=== PATIENT | female | born 1965 | race Asian ===

== ENCOUNTER 2016-12-07 12:17 | Emergency (ER) | payer OTHER ==
[~2016-12-07] VITALS: Ht 162.6 cm; Wt 73.0 kg
[2016-12-07] MEDS ORDERED: LOSA50TA37 PO (12:25)
[2016-12-07] MEDS ORDERED: METF500T4 PO (12:25)
[2016-12-07] MEDS ORDERED: SIMV-260 PO (12:25)
[2016-12-07] MEDS ORDERED: ASPI-1182 PO (12:25)
[2016-12-07] MEDS ORDERED: AMLO-511 PO (12:25)
[2016-12-07] MEDS ORDERED: HYDR25TA PO (12:25)
[2016-12-07 12:28] LABS: GLUCOSE,POINT OF CARE 103 MG/DL (70-110)
[2016-12-07] MEDS ORDERED: ACETAMINOPHEN/CODEINE 300-30 MG TABLET PO ONE (13:30)
[2016-12-07 14:26] VITALS: BP 145/99
== END 2016-12-07 14:59 | disposition home or self-care (01) ==
LOC: EMS 12:18
DX: S80.02XA Contusion of left knee, initial encounter (principal); E11.9 Type 2 diabetes mellitus without complications; E78.00 Pure hypercholesterolemia, unspecified; I10 Essential (primary) hypertension; W01.0XXA Fall on same level from slipping, tripping and stumbling without subsequent striking against object, initial encounter; Y93.01 Activity, walking, marching and hiking; Y92.512 Supermarket, store or market as the place of occurrence of the external cause; Y99.8 Other external cause status
CPT/HCPCS: 82962; 99284

== ENCOUNTER 2017-01-08 12:08 | Emergency (ER) | payer OTHER ==
[~2017-01-08] VITALS: Ht 160 cm; Wt 73.6 kg
[~2017-01-08 12:08] MED LIST: AMLO-511 PO; ASPI-1182 PO; HYDR25TA PO; LOSA50TA37 PO; METF500T4 PO; SIMV-260 PO
[2017-01-08 12:22] LABS: GLUCOSE,POINT OF CARE 272 MG/DL (70-110)
[2017-01-08] MEDS ORDERED: POVIDONE-IODINE 10% 15 ML SOLUTION UD TP ONE (12:45)
[2017-01-08] MEDS ORDERED: PERTUSS(ACELL),DIPH,TET VAC/PF 0.5 ML VIAL IM ONE (12:45)
[2017-01-08] MEDS ORDERED: HYDROCODONE/ACETAMINOPHEN 5-325 MG TABLET PO ONE (12:45)
[2017-01-08 13:32] VITALS: BP 129/83
== END 2017-01-08 14:02 | disposition home or self-care (01) ==
LOC: EMS 12:09
DX: S61.012A Laceration without foreign body of left thumb without damage to nail, initial encounter (principal); E11.9 Type 2 diabetes mellitus without complications; I10 Essential (primary) hypertension; E78.00 Pure hypercholesterolemia, unspecified; W26.8XXA Contact with other sharp object(s), not elsewhere classified, initial encounter; Y93.89 Activity, other specified; Y92.89 Other specified places as the place of occurrence of the external cause; Y99.8 Other external cause status
CPT/HCPCS: 82962; 90471; 90715; 99283

== ENCOUNTER 2017-01-10 07:23 | Emergency (ER) | payer OTHER ==
[~2017-01-10] VITALS: Ht 160 cm; Wt 64.0 kg
[2017-01-10 07:42] VITALS: BP 109/82
[2017-01-10 07:44] LABS: GLUCOSE,POINT OF CARE 184 MG/DL (70-110)
== END 2017-01-10 08:25 | disposition home or self-care (01) ==
LOC: EMS 07:27
DX: S61.012D Laceration without foreign body of left thumb without damage to nail, subsequent encounter (principal); E11.9 Type 2 diabetes mellitus without complications; E78.00 Pure hypercholesterolemia, unspecified; I10 Essential (primary) hypertension; X58.XXXD Exposure to other specified factors, subsequent encounter; Z79.82 Long term (current) use of aspirin
CPT/HCPCS: 82962; 99283

== ENCOUNTER 2017-01-12 08:44 | Emergency (ER) | payer OTHER ==
[~2017-01-12] VITALS: Ht 160 cm; Wt 73.6 kg
[2017-01-12 08:57] LABS: GLUCOSE,POINT OF CARE 108 MG/DL (70-110)
[2017-01-12 10:02] VITALS: BP 129/83
== END 2017-01-12 10:33 | disposition home or self-care (01) ==
LOC: EMS 08:46
DX: S61.012D Laceration without foreign body of left thumb without damage to nail, subsequent encounter (principal); E11.9 Type 2 diabetes mellitus without complications; E78.00 Pure hypercholesterolemia, unspecified; X58.XXXD Exposure to other specified factors, subsequent encounter
CPT/HCPCS: 82962; 99282

== ENCOUNTER 2017-07-15 08:15 | Emergency (ER) | payer OTHER ==
[~2017-07-15] VITALS: Ht 160 cm; Wt 72.7 kg
[~2017-07-15 08:15] MED LIST changes: -METF500T4 PO; +METF500T6 PO
[2017-07-15 08:33] LABS: GLUCOSE,POINT OF CARE 166 MG/DL (70-110)
[2017-07-15] MEDS ORDERED: METF500T6 PO (08:34)
[2017-07-15 08:42] VITALS: BP 112/83
== END 2017-07-15 09:03 | disposition home or self-care (01) ==
LOC: EMS 08:16
DX: S61.211A Laceration without foreign body of left index finger without damage to nail, initial encounter (principal); E11.9 Type 2 diabetes mellitus without complications; E78.00 Pure hypercholesterolemia, unspecified; I10 Essential (primary) hypertension; F17.210 Nicotine dependence, cigarettes, uncomplicated; Z79.82 Long term (current) use of aspirin; W26.0XXA Contact with knife, initial encounter; Y93.89 Activity, other specified; Y92.89 Other specified places as the place of occurrence of the external cause; Y99.8 Other external cause status
CPT/HCPCS: 99283

== ENCOUNTER 2018-05-23 11:27 | Emergency (ER) | payer OTHER ==
[~2018-05-23] VITALS: Ht 160 cm; Wt 72.7 kg
[~2018-05-23 11:27] MED LIST changes: -LOSA50TA37 PO; +LOSA50TA64 PO; +METF-960 PO; -METF500T6 PO
[2018-05-23 11:39] LABS: GLUCOSE,POINT OF CARE 116 MG/DL (70-110)
[2018-05-23] MEDS ORDERED: DEXAMETHASONE 4 MG TABLET PO ONE (14:00)
[2018-05-23] MEDS ORDERED: ALBUTEROL SULFATE HFA 90 MCG/PUFF 8 GM INHALER IH ONE (14:00)
[2018-05-23 16:23] VITALS: BP 133/99
== END 2018-05-23 16:26 | disposition home or self-care (01) ==
LOC: EMS 11:28
DX: J06.9 Acute upper respiratory infection, unspecified (principal); E11.9 Type 2 diabetes mellitus without complications; E78.00 Pure hypercholesterolemia, unspecified; I10 Essential (primary) hypertension; F17.210 Nicotine dependence, cigarettes, uncomplicated; Z79.84 Long term (current) use of oral hypoglycemic drugs; Z79.82 Long term (current) use of aspirin; Z79.899 Other long term (current) drug therapy
CPT/HCPCS: 82962; 87430; 94640; 99283; J8540; J3535

== ENCOUNTER 2018-12-07 06:34 | Emergency (ER) | payer OTHER ==
[~2018-12-07] VITALS: Ht 162.6 cm; Wt 72.7 kg
[~2018-12-07 06:34] MED LIST changes: -AMLO-511 PO; +AMLO5TAB9 PO
[2018-12-07 07:01] LABS: GLUCOSE,POINT OF CARE 163 MG/DL (70-110)
[2018-12-07 07:50] LABS: INFLUENZA TYPE A NEGATIVE FOR TYPE A (NEGATIVE); INFLUENZA TYPE B NEGATIVE FOR TYPE B (NEGATIVE)
[2018-12-07] MEDS ORDERED: ACETAMINOPHEN 500 MG TABLET PO ONE (08:00)
[2018-12-07] MEDS ORDERED: 0.9% SODIUM CHLORIDE 5 ML NEB SOLUTION NEB ONE (08:29)
[2018-12-07] MEDS ORDERED: ALBUTEROL SULFATE 5 MG/ML 20 ML NEB SOLN [BULK] NEB ONE (08:30)
[2018-12-07 09:19] LABS: BASOPHILS % (AUTO) 0.5 % (0.0-2.0); EOSINOPHILS % (AUTO) 3.6 % (1.0-6.0); HEMATOCRIT 39.1 % (36-46); HEMOGLOBIN 13.3 g/dL (12.0-16.0); LYMPHOCYTES # (AUTO) 1.2 K/uL (1.0-4.8); LYMPHOCYTES % (AUTO) 20.3 % (22.0-44.0); MEAN CORPUSCULAR HEMOGLOBIN 30.5 pg (26.0-34.0); MEAN CORPUSCULAR VOLUME 90 fL (80-100); MONOCYTES # (AUTO) 0.5 K/uL (0.1-1.0); MONOCYTES % (AUTO) 9.1 % (2.0-9.0); NEUTROPHILS # (AUTO) 3.8 K/uL (1.8-7.7); NEUTROPHILS % (AUTO) 66.5 % (40.0-70.0); PLATELET COUNT (AUTO) 211 K/uL (150-450); RED BLOOD CELL COUNT(AUTO) 4.37 MIL/uL (4.00-5.20)
[2018-12-07 09:30] LABS: ANION GAP 12 mmol/L (8-16); CALCIUM, TOTAL 9.4 mg/dL (8.8-10.5); CARBON DIOXIDE 27 mmol/L (22-29); CHLORIDE 99 mmol/L (98-107); CREATININE 0.69 mg/dL (0.60-1.30); GLOMERULAR FILTR. RATE CALC > 60 mL/min (>60); GLUCOSE,RANDOM 169 mg/dL (70-110); POTASSIUM 3.4 mmol/L (3.5-5.1); SODIUM SERUM 138 mmol/L (136-145); UREA NITROGEN, BLOOD 6 mg/dL (7-18)
[2018-12-07 09:37] LABS: ALANINE AMINOTRANSFERASE 50 U/L (12-78); ALKALINE PHOSPHATASE 92 U/L (46-116); ASPARTATE AMINOTRANSFERASE 30 U/L (15-37); BILIRUBIN,TOTAL 0.6 mg/dL (0.1-1.0); TOTAL PROTEIN, SERUM 7.7 g/dL (6.4-8.2)
[2018-12-07 10:11] VITALS: BP 136/81
[2018-12-07] MEDS ORDERED: PredniSONE 20 MG TABLET PO ONE (10:15)
== END 2018-12-07 11:09 | disposition home or self-care (01) ==
LOC: EMS 06:34
DX: J45.909 Unspecified asthma, uncomplicated (principal); E11.9 Type 2 diabetes mellitus without complications; E78.00 Pure hypercholesterolemia, unspecified; I10 Essential (primary) hypertension; Z90.710 Acquired absence of both cervix and uterus; Z79.899 Other long term (current) drug therapy
CPT/HCPCS: 36415; 71046; 80053; 82962; 85025; 87804; 94640; 99284; J7512

== ENCOUNTER 2019-04-04 05:39 | Emergency (ER) | payer OTHER ==
[~2019-04-04] VITALS: Ht 160 cm; Wt 71.4 kg
[~2019-04-04 05:39] MED LIST changes: +ASPI-1111 PO; -ASPI-1182 PO; +HYDR-1475 PO; -HYDR25TA PO; +LOSA-88 PO; -LOSA50TA64 PO
[2019-04-04] MEDS ORDERED: AZIT250T9 PO (05:45)
[2019-04-04] MEDS ORDERED: BENZ-51 PO (05:45)
[2019-04-04 06:06] LABS: GLUCOSE,POINT OF CARE 127 MG/DL (70-110)
[2019-04-04] MEDS ORDERED: DEXAMETHASONE 4 MG TABLET PO ONE (06:45)
[2019-04-04 07:25] VITALS: BP 135/75
== END 2019-04-04 07:28 | disposition home or self-care (01) ==
LOC: EMS 05:39
DX: J02.9 Acute pharyngitis, unspecified (principal); E11.9 Type 2 diabetes mellitus without complications; E78.00 Pure hypercholesterolemia, unspecified; I10 Essential (primary) hypertension; F17.210 Nicotine dependence, cigarettes, uncomplicated; Z90.710 Acquired absence of both cervix and uterus; Z79.899 Other long term (current) drug therapy; Z79.84 Long term (current) use of oral hypoglycemic drugs; Z79.82 Long term (current) use of aspirin
CPT/HCPCS: 82962; 99282; J8540

== ENCOUNTER 2024-09-18 08:48 | Emergency (ER) | payer OTHER ==
[~2024-09-18] VITALS: Ht 160 cm; Wt 73.0 kg
[~2024-09-18 08:48] MED LIST changes: +AMLO-257 PO; -AMLO5TAB9 PO; -ASPI-1111 PO; +ASPI-1444 PO; +AZIT-164 PO; +BENZ-227 PO; -HYDR-1475 PO; +HYDR25TA2 PO; +LOSA-382 PO; -LOSA-88 PO; +METF-1211 PO; -METF-960 PO
[2024-09-18 09:09] VITALS: TEMP 98.6
[2024-09-18 09:21] LABS: COVID AG,FIA SOURCE NASAL SWAB
[2024-09-18] MEDS ORDERED: AMOX-457 PO (09:43)
[2024-09-18 09:55] LABS: INFLUENZA TYPE A NEGATIVE FOR TYPE A (NEGATIVE); INFLUENZA TYPE B NEGATIVE FOR TYPE B (NEGATIVE); SARS-COV2 (COVID) ANTIGEN,FIA Negative (Negative)
[2024-09-18 09:58] LABS: RAPID GROUP A STREP NEGATIVE (NEGATIVE)
[2024-09-18] MEDS ORDERED: IBUP-1492 PO (10:01)
[2024-09-18] MEDS ORDERED: ACET-3385 PO (10:01)
[2024-09-18] MEDS: AMOX TR/POT CLAV 875 MG/125 MG TABLET PO ONE (10:03)
[2024-09-18] MEDS: BACITRACIN 0.9 GM PACKET OINTMENT TP ONE (10:04)
[2024-09-18] MEDS: PERTUSS(ACELL),DIPH,TET/PF 0.5 ML SYRINGE [ADULT] IM. ONE (10:04)
[2024-09-18] MEDS: RABIES VACCINE, HUMAN DIPLOID/PF 2.5 UNITS/ML VIAL IM. ONE (10:18)
[2024-09-18] MEDS: RABIES IMMUNE GLOBULIN/PF 150 UNITS/ML 10 ML VIAL IM. ONE (10:20)
[2024-09-18 10:39] VITALS: BP 118/81; PULSE 81; RESP 18; O2SAT 99
== END 2024-09-18 10:41 | disposition home or self-care (01) ==
LOC: EMS 08:51
DX: J02.8 Acute pharyngitis due to other specified organisms (principal); B97.89 Other viral agents as the cause of diseases classified elsewhere; E11.9 Type 2 diabetes mellitus without complications; E78.00 Pure hypercholesterolemia, unspecified; I10 Essential (primary) hypertension; Z90.710 Acquired absence of both cervix and uterus; Z79.899 Other long term (current) drug therapy; Z79.82 Long term (current) use of aspirin; Z20.3 Contact with and (suspected) exposure to rabies; Z20.822 Contact with and (suspected) exposure to COVID-19; W55.01XA Bitten by cat, initial encounter
CPT/HCPCS: 87430; 87804; 90375; 90471; 90472; 90675; 90715; 96372; 99284

== ENCOUNTER 2024-09-22 06:08 | Emergency (ER) | payer OTHER ==
[~2024-09-22] VITALS: Ht 160 cm; Wt 70.0 kg
[~2024-09-22 06:08] MED LIST changes: +ACET-3385 PO; +AMOX-457 PO; +IBUP-1492 PO
[2024-09-22 06:13] VITALS: BP 116/76; PULSE 83; RESP 16; TEMP 98.1; O2SAT 99
[2024-09-22] MEDS: RABIES VACCINE, HUMAN DIPLOID/PF 2.5 UNITS/ML VIAL IM. ONE (06:52)
== END 2024-09-22 06:57 | disposition home or self-care (01) ==
LOC: EMS 06:10
DX: T14.8XXA Other injury of unspecified body region, initial encounter (principal); E11.9 Type 2 diabetes mellitus without complications; E78.00 Pure hypercholesterolemia, unspecified; I10 Essential (primary) hypertension; Z90.710 Acquired absence of both cervix and uterus; Z79.899 Other long term (current) drug therapy; Z79.82 Long term (current) use of aspirin; Z76.0 Encounter for issue of repeat prescription; F17.210 Nicotine dependence, cigarettes, uncomplicated; W55.01XA Bitten by cat, initial encounter; Y93.89 Activity, other specified; Y92.89 Other specified places as the place of occurrence of the external cause; Y99.8 Other external cause status
CPT/HCPCS: 90471; 90675; 99283

== ENCOUNTER 2024-09-25 06:26 | Emergency (ER) | payer OTHER ==
[~2024-09-25] VITALS: Ht 160 cm; Wt 70.0 kg
[2024-09-25 06:33] VITALS: BP 147/82; PULSE 89; RESP 16; TEMP 98.6; O2SAT 99
[2024-09-25] MEDS: RABIES VACCINE, HUMAN DIPLOID/PF 2.5 UNITS/ML VIAL IM. ONE (07:01)
== END 2024-09-25 07:11 | disposition home or self-care (01) ==
LOC: EMS 06:26
DX: Z23 Encounter for immunization (principal); Z20.3 Contact with and (suspected) exposure to rabies; E11.9 Type 2 diabetes mellitus without complications; I10 Essential (primary) hypertension; E78.00 Pure hypercholesterolemia, unspecified; F17.210 Nicotine dependence, cigarettes, uncomplicated; Z79.82 Long term (current) use of aspirin; Z79.84 Long term (current) use of oral hypoglycemic drugs; Z90.710 Acquired absence of both cervix and uterus; Z79.899 Other long term (current) drug therapy
CPT/HCPCS: 90471; 90675; 99281

== ENCOUNTER 2024-10-02 06:45 | Emergency (ER) | payer OTHER ==
[~2024-10-02] VITALS: Ht 160 cm; Wt 70.0 kg
[2024-10-02 06:53] VITALS: BP 137/79; PULSE 98; RESP 16; TEMP 98.1; O2SAT 98
== END 2024-10-02 07:20 | disposition home or self-care (01) ==
LOC: EMS 06:51
DX: S60.512A Abrasion of left hand, initial encounter (principal); E11.9 Type 2 diabetes mellitus without complications; E78.00 Pure hypercholesterolemia, unspecified; I10 Essential (primary) hypertension; F17.210 Nicotine dependence, cigarettes, uncomplicated; Z90.710 Acquired absence of both cervix and uterus; Z79.82 Long term (current) use of aspirin; Z79.899 Other long term (current) drug therapy; W55.03XA Scratched by cat, initial encounter; Y93.89 Activity, other specified; Y92.89 Other specified places as the place of occurrence of the external cause; Y99.8 Other external cause status
CPT/HCPCS: 99282; Z7502